=== PATIENT | female | born 1995 | race Caucasian/White ===

== ENCOUNTER 2017-03-11 08:36 | Emergency (ER) | payer MEDICAID, OTHER, SELFPAY ==
[2017-03-11 08:58] LABS: Bilirubin Negative (Negative); Blood, Urine Negative (Negative); Clarity CLEAR (Clear); Glucose, Urine (Dipstick) Negative (Negative); Leukocyte Negative (Negative); Nitrite Negative (Negative); Protein, Urine (Dipstick) Negative (Neg-Trace); Specific Gravity, Urine 1.005 (1.002-1.036); Urobilinogen 0.2 mg/dL (0.2-1.0); pH, Urine 7.5 (5.0-9.0)
[2017-03-11 09:08] LABS: #Eosinphils 0.1 thou/uL (0.0-0.7); #Lymphocytes 1.8 thou/uL (1.20-3.40); #Monocytes 0.5 thou/uL (0.11-0.59); #Neutrophils 4.6 thou/uL (1.40-6.50); %Basophils 0.6 % (0.0-1.0); %Eosinophils 0.8 % (0.0-10.0); %Lymphocytes 26.1 % (21.0-51.0); %Monocytes 6.8 % (0.0-10.0); %Neutrophils 65.7 % (42.0-75.0); Hemoglobin 14.3 g/dL (12.0-16.0); Mean Corpuscular HGB CONC 33.8 g/dL (32.0-36.0); Mean Corpuscular Hemoglobin 31.3 pg (27.0-31.0); Mean Corpuscular Volume 92.5 fl (81.0-99.0); Mean Platelet Volume 6.4 fL (7.4-10.4); Platelet Count 198 thou/uL (130-400); RBC Distribution Width 11.3 % (11.5-14.5); Red Blood Cell (RBC) Count 4.56 mill/uL (4.20-5.40); White Blood Cell (WBC) Count 6.9 thou/uL (4.8-10.8)
[2017-03-11 09:13] LABS: BHCG - Serum POSITIVE (NEGATIVE); Pregs Control Background? CLEAR/WHITE (CLR/WHITE); Pregs Control Bar Appear? YES (CONTROL BAR)
[2017-03-11 09:20] LABS: ALT (SGPT) 11 U/L (8-55); AST (SGOT) 17 U/L (5-34); Albumin 4.2 g/dL (3.5-5.0); Alkaline Phosphatase 51 U/L (40-150); Anion Gap 15 mmol/L (10-20); BUN (Urea Nitrogen) 4 mg/dL (7.0-18.7); Bilirubin, Total 0.3 mg/dL (0.2-1.2); Calc. Creatinine Clearance 0 mL/min (70-130); Calcium 9.5 mg/dL (7.8-10.44); Carbon Dioxide 21 mmol/L (22-29); Chloride 105 mmol/L (98-107); Estimated GFR-MDRD Greater than 90; Globulin 2.4 g/dL (2.4-3.5); Glucose 90 mg/dL (70-105); Potassium 3.8 mmol/L (3.5-5.1); Protein, Total 6.6 g/dL (6.0-8.3); Sodium 137 mmol/L (136-145)
[2017-03-11] MEDS ORDERED: Acetaminophen 500 MG TAB ONE (09:25)
[2017-03-11] MEDS ORDERED: Ondansetron HCl/PF 4 MG/2 ML Vial ONE (09:25)
[2017-03-11] MEDS ORDERED: Ondansetron ODT 8 MG TAB ONE (09:28)
== END 2017-03-11 10:36 | disposition home or self-care (01) ==
LOC: ERS 08:36
DX: O21.9 Vomiting of pregnancy, unspecified (principal); O99.89 Other specified diseases and conditions complicating pregnancy, childbirth and the puerperium; R10.10 Upper abdominal pain, unspecified; O99.341 Other mental disorders complicating pregnancy, first trimester; F41.9 Anxiety disorder, unspecified; F32.9 Major depressive disorder, single episode, unspecified; O99.331 Smoking (tobacco) complicating pregnancy, first trimester; Z3A.08 8 weeks gestation of pregnancy
CPT/HCPCS: 36415; 80053; 81003; 84702; 84703; 85025; 99406; J2405

== ENCOUNTER 2017-04-13 16:28 | Emergency (ER) | payer MEDICAID, SELFPAY ==
[2017-04-13 17:00] LABS: Bilirubin Negative (Negative); Blood, Urine Negative (Negative); Clarity CLEAR (Clear); Glucose, Urine (Dipstick) Negative (Negative); Leukocyte Trace (Negative); Nitrite Negative (Negative); Protein, Urine (Dipstick) Negative (Neg-Trace); Specific Gravity, Urine 1.012 (1.002-1.036); Urobilinogen 0.2 mg/dL (0.2-1.0)
[2017-04-13 17:02] LABS: Bacteria/HPF None Seen HPF (None Seen); Hyaline Casts/LPF 0-3 HYALINE CAST LPF (0-3 Hyaline); Pathc Cast-AUWi Flag 0.13 (0-2.49); RBC/HPF 0-3 HPF (0-3); Squamous Epithelial 0-3 HPF (0-3); WBC/HPF 0-3 HPF (0-3)
[2017-04-13 17:08] LABS: #Monocytes 0.4 thou/uL (0.11-0.59); #Neutrophils 5.8 thou/uL (1.40-6.50); %Basophils 0.3 % (0.0-1.0); %Eosinophils 0.6 % (0.0-10.0); %Lymphocytes 23.9 % (21.0-51.0); %Monocytes 5.2 % (0.0-10.0); %Neutrophils 70.1 % (42.0-75.0); Mean Corpuscular HGB CONC 35.5 g/dL (32.0-36.0); Mean Corpuscular Hemoglobin 31.9 pg (27.0-31.0); Mean Corpuscular Volume 89.9 fl (81.0-99.0); Mean Platelet Volume 6.2 fL (7.4-10.4); Platelet Count 205 thou/uL (130-400); RBC Distribution Width 11.1 % (11.5-14.5); Red Blood Cell (RBC) Count 4.09 mill/uL (4.20-5.40); White Blood Cell (WBC) Count 8.2 thou/uL (4.8-10.8)
[2017-04-13 17:14] LABS: Amphetamine Not Detected (NotDetected); Barbiturates Screen Not Detected (NotDetected); Benzodiazepine Screen Not Detected (NotDetected); Cocaine Metabolite Screen Not Detected (NotDetected); Medtox Control Line Valid? VALID (VALID); Medtox Reader # READER 4; Methadone Not Detected (NotDetected); Methamphetamine Not Detected (NotDetected); Opiate Screen Not Detected (NotDetected); Oxycodone Screen Not Detected (NotDetected); Phencyclidine (PCP) Not Detected (NotDetected); THC/Cannabinoid Screen Detected (NotDetected); Tricyclic Screen Not Detected (NotDetected)
[2017-04-13 17:30] LABS: ALT (SGPT) 10 U/L (8-55); AST (SGOT) 15 U/L (5-34); Alcohol Less than 10 mg/dL (Less than 10); Alkaline Phosphatase 48 U/L (40-150); Anion Gap 10 mmol/L (10-20); BUN (Urea Nitrogen) 7 mg/dL (7.0-18.7); Bilirubin, Total 0.5 mg/dL (0.2-1.2); CK (CPK) 32 U/L (29-168); Calc. Creatinine Clearance 0 mL/min (70-130); Calcium 9.3 mg/dL (7.8-10.44); Carbon Dioxide 24 mmol/L (22-29); Chloride 104 mmol/L (98-107); Estimated GFR-MDRD Greater than 90; Globulin 2.5 g/dL (2.4-3.5); Glucose 109 mg/dL (70-105); Potassium 3.2 mmol/L (3.5-5.1); Protein, Total 6.5 g/dL (6.0-8.3); Sodium 135 mmol/L (136-145)
[2017-04-13] MEDS ORDERED: Ondansetron ODT 4 MG TAB ONE (19:57)
== END 2017-04-13 20:08 | disposition home or self-care (01) ==
LOC: ERS 16:28
DX: O99.341 Other mental disorders complicating pregnancy, first trimester (principal); F32.9 Major depressive disorder, single episode, unspecified; F41.9 Anxiety disorder, unspecified; O99.331 Smoking (tobacco) complicating pregnancy, first trimester; F17.210 Nicotine dependence, cigarettes, uncomplicated; Z79.899 Other long term (current) drug therapy; Z3A.13 13 weeks gestation of pregnancy
CPT/HCPCS: 36415; 80053; 80306; 80307; 81003; 81015; 82550; 84443; 84702; 85025; 99284; Q0162

== ENCOUNTER 2017-04-15 13:31 | Emergency (ER) | payer MEDICAID, SELFPAY ==
[2017-04-15 14:07] LABS: #Monocytes 0.4 thou/uL (0.11-0.59); #Neutrophils 5.9 thou/uL (1.40-6.50); %Basophils 0.3 % (0.0-1.0); %Eosinophils 0.4 % (0.0-10.0); %Neutrophils 70.3 % (42.0-75.0); Hemoglobin 13.9 g/dL (12.0-16.0); Mean Corpuscular HGB CONC 34.5 g/dL (32.0-36.0); Mean Corpuscular Volume 89.9 fl (81.0-99.0); Mean Platelet Volume 6.2 fL (7.4-10.4); Platelet Count 225 thou/uL (130-400); RBC Distribution Width 11.1 % (11.5-14.5); Red Blood Cell (RBC) Count 4.49 mill/uL (4.20-5.40); White Blood Cell (WBC) Count 8.4 thou/uL (4.8-10.8)
[2017-04-15 14:10] LABS: Bilirubin Negative (Negative); Blood, Urine Small (Negative); Clarity CLEAR (Clear); Glucose, Urine (Dipstick) Negative (Negative); Leukocyte Negative (Negative); Nitrite Negative (Negative); Protein, Urine (Dipstick) Negative (Neg-Trace); Specific Gravity, Urine 1.008 (1.002-1.036); Urobilinogen 0.2 mg/dL (0.2-1.0); pH, Urine 7.5 (5.0-9.0)
[2017-04-15 14:23] LABS: Bacteria/HPF None Seen HPF (None Seen); Hyaline Casts/LPF NONE SEEN LPF (0-3 Hyaline); RBC/HPF 0-3 HPF (0-3); Squamous Epithelial 0-3 HPF (0-3); WBC/HPF None Seen HPF (0-3)
[2017-04-15 14:25] LABS: ALT (SGPT) 11 U/L (8-55); AST (SGOT) 19 U/L (5-34); Albumin 4.3 g/dL (3.5-5.0); Alkaline Phosphatase 50 U/L (40-150); Anion Gap 13 mmol/L (10-20); BUN (Urea Nitrogen) 7 mg/dL (7.0-18.7); Bilirubin, Total 0.7 mg/dL (0.2-1.2); Calc. Creatinine Clearance 0 mL/min (70-130); Calcium 10.1 mg/dL (7.8-10.44); Carbon Dioxide 22 mmol/L (22-29); Chloride 104 mmol/L (98-107); Estimated GFR-MDRD Greater than 90; Globulin 2.9 g/dL (2.4-3.5); Glucose 68 mg/dL (70-105); Potassium 3.8 mmol/L (3.5-5.1); Protein, Total 7.2 g/dL (6.0-8.3); Sodium 135 mmol/L (136-145)
--- NOTE | 2017-04-15 16:04 | ULT ---
RENAL SONOGRAM: Date: 04-15-17 History: Right flank pain. History of renal cyst. Patient is approximately 13 weeks . Comparison: 07-03-13 FINDINGS: The right kidney measures 11.9 x 3.9 cm with the left kidney measuring 12.4 x 4.8 cm. There is a sma ll hypoechoic structure seen in the inferior pole of the right kidney measuring 1.5 cm with an echoge jannette area seen posteriorly within the structure. Similar finding was seen on the prior exam of 2013. T his may represent cyst with milk of calcium layering within this cyst. There is additional smaller hy poechoic structure obstructing the portion of the inferior pole right kidney measuring 1.1 cm with si milar echogenic area seen posteriorly. This could also represent a cyst with mild of calcium layering posteriorly. There is a small anechoic structure seen at the junction of midportion of superior pole right kidney measuring 1.3 cm with internal echogenic material. This represented a larger left renal cyst on prior study in 2013 and findings may represent interval decrease in size of cyst with echogenic material r epresenting a small amount of debris or hemorrhage. There is no hydronephrosis. No new renal lesion is seen. Urinary bladder demonstrates a normal sonographic appearance. There is partial visualization of an in trauterine gestation incompletely evaluated on this exam. IMPRESSION: 1. No evidence of hydronephrosis bilaterally. 2. Mildly complex cystic lesions within the inferior pole right kidney, also seen on prior exam of . Findings may be related to milk of calcium laying within cysts or possibly calcifications in the wall. 2. Interval decrease in size of superior pole right renal cyst with echogenic material now seen in th e cyst which could be related to debris or small amount of hemorrhage. 3. Patient demonstrated cystic lesions within the superior pole left kidney and inferior pole right k idney on prior CT examination on 07-08-12. POS: [facility]
== END 2017-04-15 16:54 | disposition home or self-care (01) ==
LOC: ERS 13:31
DX: O26.831 Pregnancy related renal disease, first trimester (principal); N28.1 Cyst of kidney, acquired; O99.341 Other mental disorders complicating pregnancy, first trimester; F41.9 Anxiety disorder, unspecified; F32.9 Major depressive disorder, single episode, unspecified; O99.331 Smoking (tobacco) complicating pregnancy, first trimester; Z3A.00 Weeks of gestation of pregnancy not specified
CPT/HCPCS: 36415; 76770; 80053; 81003; 81015; 83690; 85025; 96360; 99406

== ENCOUNTER 2017-05-29 08:10 | Outpatient (CLI) | payer OTHER ==
--- NOTE | 2017-05-29 09:00 | ULT ---
RIGHT UPPER QUADRANT ULTRASOUND: History: 22-year-old with abdominal pain. Technique: Multiple longitudinal and transverse images of the right upper quadrant of the abdomen obt ained using a multihertz curvilinear transducer. Real-time, color flow and spectral waveform doppler analysis was used to evaluate the right upper quadrant. FINDINGS: The liver is unremarkable with no evidence of hepatic parenchymal masses or lesions. The gallbladder is unremarkable. No evidence of gallstones seen. Common bile duct is of normal size measuring 2.8 mm. The gallbladder wall is not thickened. The right kidney is unremarkable measuring 11.3 cm from pole to pole. There is a small cortical cyst seen in the upper pole of the right kidney. IMPRESSION: Small right renal cyst, otherwise unremarkable right upper quadrant ultrasound. POS: [facility]
--- NOTE | 2017-05-29 09:34 | ULT ---
BILATERAL RENAL ULTRASOUND: History: Renal cysts. Technique: Multiple longitudinal and transverse images of the kidneys and bladder were obtained using a multihertz curvilinear transducer. Real-time, color flow images obtained. Comparison: 04-15-17 FINDINGS: Images demonstrate both kidneys to be of normal contour, axis, and size. The right kidney measures 11 .2 while the left kidney measures 11.5 cm from pole to pole. Some cortical cysts seen in the upper an d mid pole of the left kidney. This is not significantly changed since the previous comparison ultras ound from 04-15-17. Continue with follow up sonography after the patient has had delivery. IMPRESSION: Left renal cysts. No evidence of hydronephrosis or masses. POS: [facility]
== END 2017-05-29 08:11 | disposition home or self-care (01) ==
LOC: ULT 08:10
PROVIDERS: ATTEND Family Medicine
DX: O99.89 Other specified diseases and conditions complicating pregnancy, childbirth and the puerperium (principal); R10.9 Unspecified abdominal pain; N28.1 Cyst of kidney, acquired
CPT/HCPCS: 76705; 76770

== ENCOUNTER 2017-06-24 10:29 | Day surgery (SDC) | payer OTHER ==
[2017-06-24 10:48] LABS: #Eosinphils 0.1 thou/uL (0.0-0.7); #Lymphocytes 1.9 thou/uL (1.20-3.40); #Monocytes 0.5 thou/uL (0.11-0.59); #Neutrophils 6.7 thou/uL (1.40-6.50); %Basophils 0.2 % (0.0-1.0); %Eosinophils 0.7 % (0.0-10.0); %Lymphocytes 20.8 % (21.0-51.0); %Monocytes 5.4 % (0.0-10.0); %Neutrophils 72.9 % (42.0-75.0); Hemoglobin 12.7 g/dL (12.0-16.0); Mean Corpuscular HGB CONC 35.3 g/dL (32.0-36.0); Mean Corpuscular Hemoglobin 32.1 pg (27.0-31.0); Mean Platelet Volume 5.8 fL (7.4-10.4); Platelet Count 230 thou/uL (130-400); Red Blood Cell (RBC) Count 3.95 mill/uL (4.20-5.40); White Blood Cell (WBC) Count 9.1 thou/uL (4.8-10.8)
[2017-06-24 11:10] LABS: ALT (SGPT) 24 U/L (8-55); AST (SGOT) 27 U/L (5-34); Albumin 3.5 g/dL (3.5-5.0); Alkaline Phosphatase 62 U/L (40-150); Anion Gap 12 mmol/L (10-20); BUN (Urea Nitrogen) 5 mg/dL (7.0-18.7); Bilirubin, Total 0.2 mg/dL (0.2-1.2); CK (CPK) 25 U/L (29-168); Calc. Creatinine Clearance 0 mL/min (70-130); Calcium 9.6 mg/dL (7.8-10.44); Carbon Dioxide 22 mmol/L (22-29); Chloride 104 mmol/L (98-107); Estimated GFR-MDRD Greater than 90; Globulin 2.7 g/dL (2.4-3.5); Glucose 102 mg/dL (70-105); Lipase 21 U/L (8-78); Potassium 3.3 mmol/L (3.5-5.1); Protein, Total 6.2 g/dL (6.0-8.3); Sodium 135 mmol/L (136-145)
[2017-06-24 11:15] LABS: CKMB 0.4 ng/mL (0-6.6); Troponin I Less than 0.010 ng/mL (< 0.028)
[2017-06-24 11:33] VITALS: BP 139/107; TEMP 99.2; BMI 19.3
[2017-06-24] MEDS ORDERED: Lidocaine 2% Viscous Solution 10 ML, Aluminum & Magnesium Hydroxide 30 ML SSW SCH (12:15)
[2017-06-24] MEDS ORDERED: Dextrose 5%-Lactated Ringers 1,000 ML IV SCH (12:15)
[2017-06-24 12:28] LABS: Bilirubin Negative (Negative); Blood, Urine Trace (Negative); Clarity CLEAR (Clear); Glucose, Urine (Dipstick) Negative (Negative); Leukocyte Trace (Negative); Nitrite Negative (Negative); Protein, Urine (Dipstick) Negative (Neg-Trace); Specific Gravity, Urine 1.011 (1.002-1.036); Urobilinogen 0.2 mg/dL (0.2-1.0)
[2017-06-24 12:32] LABS: Bacteria/HPF None Seen HPF (None Seen); Hyaline Casts/LPF 4-6 HYALINE CAST LPF (0-3 Hyaline); Pathc Cast-AUWi Flag 1.01 (0-2.49); Squamous Epithelial 0-3 HPF (0-3)
[2017-06-24 12:45] LABS: Transitional Epithelial 0-3 HPF (0-3)
--- NOTE | 2017-06-24 14:06 | PRG ---
DATE OF SERVICE: 06/24/2017 TIME OF SERVICE: 1345. PRESENTING COMPLAINT: Mid epigastric pain at 22-23 weeks gestation. HISTORY OF PRESENT ILLNESS: The patient is a 22-year-old 3, para 0 with an EDC of 10/17/2017 who presents with 1 day history of midepigastric pain radiating over to the left upper quadrant. Sh e has had mild nausea, no vomiting, and decreased p.o. desire. She reports movement. She delfino es rupture of membranes, bleeding, dysuria or frequency. 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 No history of STDs, negative Pap, negative [employer] DIRECT[employer] FINANCE-3, blood type not in OB h istory. PAST MEDICAL HISTORY: Significant for long history of GI issues with negative EGDs and hospitalizati ons. PAST SURGICAL HISTORY: EGD and tonsils. ALLERGIES: PENICILLIN - rash with AMOXICILLIN in infancy for ear infection. MEDICATIONS: vitamins. SOCIAL HISTORY: Denies tobacco, alcohol, or drug use. FAMILY HISTORY/REVIEW OF SYSTEMS: Noncontributory. PHYSICAL EXAMINATION: GENERAL: White female in no acute distress. VITAL SIGNS: Blood pressure 128/72, after initial 130/80, afebrile with a temperature of 98.2, respi rations 18, pulse 85. HEENT: Within normal limits. LUNGS: Clear to auscultation bilaterally. HEART: Regular rate and rhythm. ABDOMEN: Fundal height of 23 cm. FHTs 140s to 150s. She has discomfort in the midepigastrium just below her xiphoid and to left upper quadrant. No right upper quadrant tenderness. No mass noted. N o CVA tenderness. EXTREMITIES: Without clubbing, cyanosis or edema. PELVIC: Exam deferred. LABORATORY STUDIES: White count of 9.1, hematocrit of 36, platelet count within normal limits. Comp met revealed mild hyponatremia and a slight hypokalemia consistent with her n.p.o. status. Otherwis e, is unremarkable with normal liver enzymes and amylase. Cath UA revealed trace white blood cells w ith trace leukocyte esterase, no RBCs, no bacteria seen. Toxicology was not done and it was positive for cannabinoids in March. IMPRESSION: GE reflux in 2nd trimester of . PLAN: The patient was administered 1 liter of LR D5 bolus as well as a white grasshopper GI cocktail . This relieved her symptoms completely. She was discharged home and instructed to take Zantac 75 p .o. b.i.d. and keep scheduled follow up with Dr. Goff. Represented to the ER for worsening symptoms.
== END 2017-06-24 14:05 | disposition home or self-care (01) ==
LOC: L&D/OP 10:29 → ERS 10:29 → EDSTATUS 10:52 → L&D/OP 14:05
PROVIDERS: ATTEND Family Medicine
DX: O99.612 Diseases of the digestive system complicating pregnancy, second trimester (principal); K21.9 Gastro-esophageal reflux disease without esophagitis; Z3A.23 23 weeks gestation of pregnancy; Z79.899 Other long term (current) drug therapy; Z88.0 Allergy status to penicillin; Z91.040 Latex allergy status
CPT/HCPCS: 36415; 51701; 80053; 81001; 82553; 83690; 84484; 85025; 87086; 93005; 94760; 96360; 96361; 99283; A4353

== ENCOUNTER 2017-06-28 12:50 | Emergency (ER) | payer OTHER | END 2017-06-28 13:54 | LOC: ERS 12:50 | DX: Z53.21 Procedure and treatment not carried out due to patient leaving prior to being seen by health care provider (principal) ==

== ENCOUNTER 2017-07-30 14:14 | Day surgery (SDC) | payer OTHER ==
[2017-07-30 14:46] VITALS: BMI 21.6
[2017-07-30 14:47] VITALS: BP 139/73; TEMP 99.1
[2017-07-30 15:54] LABS: Bilirubin Negative (Negative); Blood, Urine Negative (Negative); Clarity CLEAR (Clear); Glucose, Urine (Dipstick) Negative (Negative); Leukocyte Negative (Negative); Nitrite Negative (Negative); Protein, Urine (Dipstick) Negative (Neg-Trace); Specific Gravity, Urine 1.005 (1.002-1.036); Urobilinogen 0.2 mg/dL (0.2-1.0); pH, Urine 7.5 (5.0-9.0)
--- NOTE | 2017-07-31 03:40 | SS ---
LABOR AND DELIVERY TRIAGE NOTE DATE OF EVALUATION: 07/30/2017 REGULAR PHYSICIAN: Wilner Goff M.D. EVALUATING PHYSICIAN: Jose Hunter M.D. CHIEF COMPLAINT: Back pain and cramping. HISTORY OF PRESENT ILLNESS: Ms. Modi is a 22-year-old, white, G3, P0, AB2 with an estimated date of confinement of 10/17/2017, who presents complaining of cramping and lower back pain since earlier today. She denies ruptured membranes or vaginal bleeding. Her care has been with Dr. Goff without complications. PAST MEDICAL HISTORY: None. PAST SURGICAL HISTORY: Includes a tonsillectomy and sinus surgery. CURRENT MEDICATIONS: vitamins and occasional Unisom p.r.n. sleeplessness. ALLERGIES: No known allergies. SOCIAL HISTORY: Denies tobacco use or alcohol use. FAMILY HISTORY: Denies pelvic malignancy. REVIEW OF SYSTEMS: She denies nausea, vomiting, fever, chills, vaginal bleeding or ruptured membrane s. PHYSICAL EXAMINATION: VITAL SIGNS: Stable. She is afebrile. ABDOMEN: Soft, nontender and gravid. PELVIC: Pelvic examination is deferred. heart tones are stable with no decelerations. Initia lly a mild irritability is seen. The patient is orally hydrated and quickly quieted down. LABORATORY DATA: Urinalysis shows a specific gravity of 1.005 with negative leukocytes, negative nit rites, negative urine protein, negative glucose, negative ketones, negative bilirubin and negative bl ood. ASSESSMENT: 1. A 28 and 5/7 week intrauterine . 2. No evidence of labor. PLAN: The patient will be discharged to home. She was given complete labor precautions and was told to keep herself hydrated at home and follow up with Dr. Goff for her next scheduled appointm ent.
== END 2017-07-30 16:38 | disposition home or self-care (01) ==
LOC: L&D/OP 14:14
PROVIDERS: ATTEND Family Medicine
DX: O99.89 Other specified diseases and conditions complicating pregnancy, childbirth and the puerperium (principal); R10.9 Unspecified abdominal pain; M54.5 Low back pain; Z3A.28 28 weeks gestation of pregnancy
CPT/HCPCS: 81003; 99282

== ENCOUNTER 2017-10-01 17:00 | Observation (INO) | payer OTHER ==
[2017-10-01 18:27] VITALS: BMI 22.8
[2017-10-01] MEDS ORDERED: Ondansetron HCl/PF 4 MG/2 ML Vial IVP PRN (22:16)
[2017-10-01] MEDS ORDERED: Zolpidem Tartrate 5 MG TAB PO PRN (22:16)
[2017-10-01] MEDS ORDERED: Acetaminophen 500 MG TAB PO PRN (22:16)
[2017-10-01] MEDS ORDERED: Calcium Carbonate 500 MG ChewTAB PO PRN (22:17)
--- NOTE | 2017-10-02 01:20 | HP ---
DATE OF ENCOUNTER: 10/01/2017 PRIMARY GERMAN INSTRUCTOR: Dr. Wilner Goff. CHIEF COMPLAINT: Leakage of fluid and contractions. HISTORY OF PRESENT ILLNESS: Patient is a 22-year-old G1, P0 female with an intrauterine at 37 weeks and 5 days, who is presenting to labor and delivery this afternoon with complaints of cramp iness and contractions and leaking fluid since her doctor's visit earlier today. Patient had request ed that her membranes to be swept. She reports that her leaking is evidence by moisture and her pain is that she has had replaced several times. She does report that her crampiness feels more like Bra xton Alanis and are not severe regular at this time. Patient denies any recent illness, fever, fall, headache, chest pain, shortness of breath. She has had some nausea, but no vomiting. Denies diarrhe a or constipation. Denies any new rashes. Denies vaginal bleeding, denies any urinary urgency or fr equency. Denies right upper quadrant tenderness. PAST MEDICAL HISTORY: History of depression, anxiety, history of cutting behavior, heartburn. PAST SURGICAL HISTORY: EGD and ESS with tonsillectomy. SOCIAL HISTORY: Denies drug, alcohol, or tobacco use. ALLERGIES: PENICILLIN and LATEX. Blood type A positive. She is rubella immune. GC and chlamydia are negative. Syphilis is nonreacti ve. Hepatitis B surface antigen nonreactive. HIV nonreactive in the third trimester. RPR nonreacti ve in the third trimester. A drug screen positive for marijuana. REVIEW OF SYSTEMS: Per HPI. PHYSICAL EXAMINATION: VITAL SIGNS: Initial blood pressure 143/93, heart rate of 98, respiratory rate of 20, temperature 98 .8. Over the subsequent 4 hours, patient has had primarily normal range pressures with occasional mi ld with her most elevated blood pressure at 147/92. GENERAL: She appears to be in no acute distress. She is alert and oriented, cooperative, and pleasa nt to interact with. HEAD: Normocephalic, atraumatic. LUNGS: Clear to auscultation bilaterally. HEART: Regular rate and rhythm. ABDOMEN: Soft. There is no right upper quadrant tenderness to palpation and no other tenderness to palpation. Abdomen is gravid. No suprapubic tenderness. DTRs are 2+. Bulb was without masses, les ions, or erythema. Vagina is moist. No fluids visible on exam with Valsalva and Trendelenburg for a n hour. A digital cervical exam is 1.5, 60, ballotable. heart tracing performed for abdominal pain and leakage of fluid. Baseline is noted to be in the 140s with moderate long-term variability, positive accelerations 15 x 15 accelerations, no decelerations. She has irritability on the tocometer with l arger contractions about every 7-10 minutes. Urine dip for protein was negative. CMP is pending. ASSESSMENT AND PLAN: Patient is a 22-year-old female with a history of anxiety and depression, prese nting with an intrauterine at 37 weeks and 5 days for leakage of fluid. [facility] this time that she has any rupture of membranes or active labor at this time; however, patient has had occasional spikes into the mild range over the 4 hours of evaluating her blood pressures. I have spoken to Dr. Goff, her primary OB, who knows the patient much better than I do and reports that patient's blood pressures were very labile due to emotions and stress. Patient does not have a favo rable cervix for induction at this time and I am reluctant to call her PIH, as she has not had elevat ed pressures outside the 6-hour window. Plan at this time is to bring the patient in for observation overnight and see how her pressures trend and will give report to Dr. Goff in the morning. I discus sed this plan with the patient and discussed the risks of induction of labor at 37 weeks with an unfa vorable cervix and the benefit of an induction at this time if she did indeed have a relate d hypertension. Fetus has a reactive NST and category [address] Goff will be assuming care i n the morning should she stay.
[2017-10-02 04:35] VITALS: TEMP 98.3
[2017-10-02 05:31] LABS: Hemoglobin 9.7 g/dL (12.0-16.0); Mean Corpuscular HGB CONC 34.6 g/dL (32.0-36.0); Mean Corpuscular Volume 83.8 fL (78.0-98.0); Mean Platelet Volume 6.1 fL (7.4-10.4); Platelet Count 232 thou/uL (130-400); RBC Distribution Width 11.7 % (11.5-14.5); Red Blood Cell (RBC) Count 3.33 mill/uL (4.20-5.40); White Blood Cell (WBC) Count 9.1 thou/uL (4.8-10.8)
[2017-10-02 05:57] LABS: ALT (SGPT) 9 U/L (8-55); AST (SGOT) 15 U/L (5-34); Alkaline Phosphatase 178 U/L (40-150); Anion Gap 11 mmol/L (10-20); BUN (Urea Nitrogen) 8 mg/dL (7.0-18.7); Bilirubin, Total 0.3 mg/dL (0.2-1.2); Calc. Creatinine Clearance 128 mL/min (70-130); Carbon Dioxide 23 mmol/L (22-29); Chloride 105 mmol/L (98-107); Estimated GFR-MDRD Greater than 90; Globulin 2.6 g/dL (2.4-3.5); Glucose 92 mg/dL (70-105); Potassium 3.7 mmol/L (3.5-5.1); Protein, Total 5.6 g/dL (6.0-8.3); Sodium 135 mmol/L (136-145)
[2017-10-02 06:04] VITALS: BP 126/67
[2017-10-02 06:14] LABS: HBSAg Index 0.17 S/CO (0-0.99); Hep B Surf Ag Non-Reactive S/CO (NonReactive); Syphilis Antibody Nonreactive (Nonreactive); Syphilis Antibody Index 0.03 S/CO (<1.00 Non-Reactive)
--- NOTE | 2017-10-02 08:40 | DIS ---
HOSPITAL COURSE: The patient is a 22-year-old G1, P0 female with an intrauterine at 37 wee ks and 5 days who was admitted for observation due to mild elevations in her blood pressure. Her pH labs have all been within normal limits supporting no evidence of preeclampsia. Her mild range blood pressures resolved to strictly normal range within 6 hours. During that 6 hour period her mild rang e pressures trended less and less frequent with a blood pressure max at 147/92. The patient this kyleigh duque reports that she is feeling well. Denies headache. Reports her cramping has nearly resolved. OBJECTIVE: VITAL SIGNS: Blood pressure is 131/77 with a heart rate of 74. GENERAL: The patient appears to be in no acute distress. She was awoken from her sleep. ABDOMEN: Soft, nontender. EXTREMITIES: Without edema and are nontender. The patient is being discharged to home. She has instructions to follow up with Dr. Goff tomorrow. I have communicated the same findings to Dr. Goff and will be expecting her tomorrow. I have also a sked the patient to take her blood pressure cuff to the office to compare blood pressure readings. The patient will be given preeclamptic precautions. If blood pressures remain normal, she does have an induction date in place decided upon by Dr. Goff and herself. Should she persist with her elevate d blood pressures, or if blood pressures return the patient and Dr. Goff can make further management decisions.
== END 2017-10-02 06:50 | disposition home health service (06) ==
LOC: L&D/OP 17:00 → L&D 10-02 00:42
PROVIDERS: ADMIT Obstetrics & Gynecology; ATTEND Obstetrics & Gynecology
DX: O47.1 False labor at or after 37 completed weeks of gestation (principal); Z88.0 Allergy status to penicillin; Z91.040 Latex allergy status; Z3A.37 37 weeks gestation of pregnancy
CPT/HCPCS: 36415; 80053; 81003; 85027; 86780; 86850; 86900; 86901; 87340; 99285; G0378

== ENCOUNTER 2017-10-03 17:37 | Day surgery (SDC) | payer OTHER ==
[2017-10-03 18:20] VITALS: BMI 22.6
[2017-10-03 18:56] LABS: #Basophils 0.1 thou/uL (0.0-0.2); #Lymphocytes 2.2 thou/uL (1.20-3.40); #Monocytes 0.5 thou/uL (0.11-0.59); #Neutrophils 6.5 thou/uL (1.40-6.50); %Basophils 0.7 % (0.0-1.0); %Eosinophils 0.4 % (0.0-10.0); %Lymphocytes 23.9 % (21.0-51.0); %Monocytes 5.3 % (0.0-10.0); %Neutrophils 69.6 % (42.0-75.0); Hemoglobin 10.7 g/dL (12.0-16.0); Mean Corpuscular HGB CONC 35.2 g/dL (32.0-36.0); Mean Corpuscular Volume 82.5 fL (78.0-98.0); Mean Platelet Volume 6.1 fL (7.4-10.4); Platelet Count 200 thou/uL (130-400); RBC Distribution Width 11.7 % (11.5-14.5); Red Blood Cell (RBC) Count 3.68 mill/uL (4.20-5.40); White Blood Cell (WBC) Count 9.4 thou/uL (4.8-10.8)
[2017-10-03 19:15] LABS: Bilirubin Negative (Negative); Blood, Urine Negative (Negative); Clarity CLEAR (Clear); Glucose, Urine (Dipstick) 100 mg/dL (Negative); Leukocyte Negative (Negative); Nitrite Negative (Negative); Protein, Urine (Dipstick) Negative (Neg-Trace); Urobilinogen 0.2 mg/dL (0.2-1.0); pH, Urine 6.5 (5.0-9.0)
[2017-10-03 19:18] LABS: Specific Gravity, Urine 1.003 (1.002-1.036)
[2017-10-03 19:20] LABS: ALT (SGPT) 8 U/L (8-55); AST (SGOT) 16 U/L (5-34); Albumin 3.2 g/dL (3.5-5.0); Alkaline Phosphatase 203 U/L (40-150); Anion Gap 13 mmol/L (10-20); BUN (Urea Nitrogen) 5 mg/dL (7.0-18.7); Bilirubin, Total 0.4 mg/dL (0.2-1.2); Calc. Creatinine Clearance 111 mL/min (70-130); Calcium 8.8 mg/dL (7.8-10.44); Carbon Dioxide 20 mmol/L (22-29); Chloride 107 mmol/L (98-107); Estimated GFR-MDRD Greater than 90; Glucose 167 mg/dL (70-105); Potassium 3.5 mmol/L (3.5-5.1); Protein, Total 6.2 g/dL (6.0-8.3); Sodium 136 mmol/L (136-145)
--- NOTE | 2017-10-03 21:34 | PDOC.EVN ---
Event Note - Event Note Event Note: I have seen the patient and reviewed the lab results. BPs normal to mild range and labs wnl. No protein on UA. D/c home with precautions. Advised to follow up within 1 week with PCP.
--- NOTE | 2017-10-04 02:10 | SS ---
DATE OF EVALUATION: 10/03/2017 LABOR AND DELIVERY TRIAGE NOTE REGULAR PHYSICIAN: Wilner Goff M.D. EVALUATING PHYSICIAN: Jose Hunter M.D. CHIEF COMPLAINT: Elevated blood pressures in clinic. HISTORY OF PRESENT ILLNESS: Ms. Modi is a 22-year-old, white, G3, P0, AB2 with an estimated date of confinement of 10/17/2017, who presents after having had elevated blood pressure in clinic today. She reports her blood pressure is 160/95 at that time. She was evaluated in clinic, but Dr. Goff w as not present at that time. She denies headache, visual changes, or right upper quadrant pain. Of note, it is the fact that she was evaluated within the last 2 weeks for similar complaints. PAST OBSTETRICAL HISTORY: Includes two early miscarriages neither requiring D&C. PAST MEDICAL HISTORY: Depression. PAST SURGICAL HISTORY: Tonsillectomy and adenoidectomy as well as nasal surgery. CURRENT MEDICATIONS: vitamins and Zoloft. ALLERGIES: PENICILLIN and LATEX. SOCIAL HISTORY: She denies tobacco or alcohol use. FAMILY HISTORY: Unremarkable. REVIEW OF SYSTEMS: She denies headache, blurry vision, right upper quadrant pain, or contractions. PHYSICAL EXAMINATION: VITAL SIGNS: Blood pressures initially here are in the 130s/80s range. She is afebrile. ABDOMEN: Soft and nontender. PELVIC: At this time is deferred. heart rate tracing is stable. No significant uterine contr actions are seen. ASSESSMENT: 1. A 38-week intrauterine . 2. Elevated blood pressures in clinic rule out -induced hypertension. PLAN: CBC, chemistry, and urinalysis for protein have been ordered and they are pending.
== END 2017-10-03 21:10 | disposition home or self-care (01) ==
LOC: L&D/OP 17:37
PROVIDERS: ATTEND Family Medicine
DX: O99.89 Other specified diseases and conditions complicating pregnancy, childbirth and the puerperium (principal); R03.0 Elevated blood-pressure reading, without diagnosis of hypertension; Z88.0 Allergy status to penicillin; Z91.040 Latex allergy status; Z3A.38 38 weeks gestation of pregnancy
CPT/HCPCS: 36415; 80053; 81003; 85025

== ENCOUNTER 2017-10-10 21:00 | Inpatient (IN) | payer OTHER ==
[2017-10-11 02:32] VITALS: BMI 23.0
[2017-10-11] MEDS ORDERED: NS w/ Oxytocin 10 units 500 ML IV SCH (02:32)
[2017-10-11] MEDS ORDERED: Lidocaine 1% (PF) 30 ML VIAL SC PRN ×2 (02:32→09:45)
[2017-10-11] MEDS ORDERED: Promethazine HCl 25 MG/ML VIAL IM PRN ×2 (02:32→09:14)
[2017-10-11] MEDS ORDERED: Ibuprofen 800 MG TAB PO PRN (02:32)
[2017-10-11] MEDS ORDERED: NS / Oxytocin 40 units/1000ml 1,000 ML IV PRN (02:32)
[2017-10-11] MEDS ORDERED: HYDROcodone/Acetaminophen 5/325 mg Tablet PO PRN (02:32)
[2017-10-11] MEDS ORDERED: Methylergonovine 0.2 MG/ML VIAL IM PRN (02:32)
[2017-10-11] MEDS ORDERED: Misoprostol 200 MCG TAB PR PRN (02:32)
[2017-10-11] MEDS ORDERED: Carboprost 250 MCG/ML AMP IM PRN (02:32)
[2017-10-11] MEDS ORDERED: Vancomycin HCl 1 GM in Premix Bag 1 BAG IVPB SCH (03:00)
[2017-10-11] MEDS: Lactated Ringer's 1,000 ML IV SCH ×2 (03:09→08:59)
[2017-10-11 03:13] LABS: Hemoglobin 10.3 g/dL (12.0-16.0); Mean Corpuscular HGB CONC 34.3 g/dL (32.0-36.0); Mean Corpuscular Hemoglobin 27.8 pg (27.0-31.0); Mean Platelet Volume 6.9 fL (7.4-10.4); Platelet Count 212 thou/uL (130-400); RBC Distribution Width 12.1 % (11.5-14.5); Red Blood Cell (RBC) Count 3.71 mill/uL (4.20-5.40); White Blood Cell (WBC) Count 10.2 thou/uL (4.8-10.8)
[2017-10-11] MEDS: Misoprostol 100 MCG TAB VAG SCH ×5 (03:17→16:28)
[2017-10-11 03:22] LABS: Bilirubin Negative (Negative); Blood, Urine Negative (Negative); Clarity CLEAR (Clear); Glucose, Urine (Dipstick) Negative (Negative); Leukocyte Negative (Negative); Nitrite Negative (Negative); Protein, Urine (Dipstick) Negative (Neg-Trace); Specific Gravity, Urine 1.007 (1.002-1.036); Urobilinogen 0.2 mg/dL (0.2-1.0); pH, Urine 7.5 (5.0-9.0)
[2017-10-11 03:24] LABS: Bacteria/HPF None Seen HPF (None Seen); Hyaline Casts/LPF 0-3 HYALINE CAST LPF (0-3 Hyaline); RBC/HPF 0-3 HPF (0-3); Squamous Epithelial 0-3 HPF (0-3); WBC/HPF 0-3 HPF (0-3)
[2017-10-11 03:28] LABS: ALT (SGPT) 15 U/L (8-55); AST (SGOT) 31 U/L (5-34); Albumin 3.4 g/dL (3.5-5.0); Alkaline Phosphatase 219 U/L (40-150); Anion Gap 17 mmol/L (10-20); BUN (Urea Nitrogen) 8 mg/dL (7.0-18.7); Bilirubin, Total 0.2 mg/dL (0.2-1.2); Calc. Creatinine Clearance 136 mL/min (70-130); Calcium 8.6 mg/dL (7.8-10.44); Carbon Dioxide 19 mmol/L (22-29); Chloride 104 mmol/L (98-107); Estimated GFR-MDRD Greater than 90; Globulin 2.9 g/dL (2.4-3.5); Glucose 79 mg/dL (70-105); Potassium 4.2 mmol/L (3.5-5.1); Protein, Total 6.3 g/dL (6.0-8.3); Sodium 136 mmol/L (136-145)
[2017-10-11 03:46] LABS: Hep B Surf Ag Non-Reactive S/CO (NonReactive)
[2017-10-11 04:43] LABS: Syphilis Antibody Nonreactive (Nonreactive); Syphilis Antibody Index 0.04 S/CO (<1.00 Non-Reactive)
[2017-10-11] MEDS ORDERED: diphenhydrAMINE 25 MG CAP PO SCH (06:00)
[2017-10-11] MEDS ORDERED: Bupivacaine 0.5% 20 ML, fentaNYL Citrate/PF 400 MCG in Sodium Chloride 0.9% 72 ML EPIDURAL SCH (08:00)
[2017-10-11] MEDS ORDERED: DISCONTINUE ALL PREVIOUS NARCOTICS FS SCH (08:00)
[2017-10-11] MEDS: Ondansetron HCl/PF 4 MG/2 ML Vial IVP PRN (09:08)
[2017-10-11] MEDS ORDERED: ePHEDrine/0.9% NaCl/PF SYRINGE 50 mg/10 ml SLOW IVP PRN (09:14)
[2017-10-11] MEDS ORDERED: Lactated Ringer's 500 ML IV PRN (09:14)
[2017-10-11] MEDS ORDERED: Acetaminophen 325 MG TAB PO PRN (09:14)
[2017-10-11] MEDS ORDERED: Ondansetron HCl/PF 4 MG/2 ML Vial IVP PRN (09:14)
[2017-10-11] MEDS ORDERED: diphenhydrAMINE 50 MG/ML VIAL IVP PRN (09:14)
[2017-10-11] MEDS ORDERED: Naloxone HCl 0.4 mg/ml Vial IVP PRN ×2 (09:14)
[2017-10-11] MEDS ORDERED: Eucerin (Mineral Oil/Petrolatum,White) 30 gm Jar TOP PRN (09:14)
[2017-10-11] MEDS ORDERED: Communication Order-Pharmacy FS SCH (09:15)
--- NOTE | 2017-10-11 09:39 | PDOC.LDHP ---
Labor and Delivery H&P Chief complaint: scheduled induction HPI: IOL at 39 weeks for pt preerence, mild PIH, anxiety with labile BP Current gestational age (weeks): 39 Due date: 10/17/17 Dating criteria: first trimester ultrasound Grav: 3 Para: 0 Current complications: gestational hypertension Abnormal US findings: No Current medications: pre-bello vitamins Previous surgical history: other (Tonsillectomy) Allergies/Adverse Reactions: Allergies Allergy/AdvReac Type Severity Reaction Status Date / Time latex Allergy Intermediate Hives Verified 10/11/17 02:20 Penicillins Allergy Intermediate Hives Verified 10/11/17 02:20 - Physical Exam General: NAD, resting, breathing through contractions, other Heart: RRR Lungs: nonlabored breathing Abdomen: NTTP Extremeties: no edema FHT: category 1, variability present [place] contractions every: 2 minutes - Vaginal Exam cm dilated: 2 Effacement: 50% Station: -1 - OB Labs Blood type: A RH: positive Antibody Screen: negative HIV: negative RPR: negative HEPSAg: negative 1 hour GCT: negative GBS: positive Urine drug screen: not done Rubella: immune - Assessment L&D Assessment: elective induction at term - Plan Plan: admit to L&D, cervical ripening, labor augmentation if indicated, GBS antibiotic prophylaxis
[2017-10-11] MEDS ORDERED: Bupivacaine 0.25% HCL 30 ML VIAL ONE (11:11)
[2017-10-11] MEDS ORDERED: Sodium Chloride 0.9% (PF) 10 ML VIAL ONE (11:11)
[2017-10-11] MEDS: CEFAZOLIN 1 GM in Sodium Chloride 0.9% 100 ML IVPB SCH ×2 (11:50→20:22)
--- NOTE | 2017-10-11 15:40 | PDOC.EVN ---
Event Note - Event Note Event Note: Checked on pt in labor. Making good progress. Balloon out at 1pm. SVE at that time /-1. At this time, AROM with clear fluid. SVE /-1. FWB reassuring. CTX q@min. Anticipate . Continue Ancef for GBS.
[2017-10-11] MEDS: fentaNYL Citrate/PF 400 MCG, Bupivacaine 0.5% 20 ML in Sodium Chloride 0.9% 72 ML EPIDURAL SCH ×2 (16:29→22:32)
[2017-10-12] MEDS: Lactated Ringer's 1,000 ML IV SCH ×2 (00:57→07:16)
[2017-10-12] MEDS: Ondansetron HCl/PF 4 MG/2 ML Vial IVP PRN (04:59)
[2017-10-12] MEDS ORDERED: Lanolin Ointment 7 GM TUBE TOP PRN (06:06)
[2017-10-12] MEDS ORDERED: Benzocaine/Menthol 20-0.5% 60 ML CAN TOP PRN (06:06)
[2017-10-12] MEDS ORDERED: Adacel (T-DAP) 0.5 ML VIAL IM ONE (06:06)
[2017-10-12] MEDS ORDERED: NS / Oxytocin 40 units/1000ml 1,000 ML IV SCH (06:06)
[2017-10-12] MEDS ORDERED: Milk Of Magnesia 30 ML UDCUP PO PRN (06:06)
[2017-10-12] MEDS ORDERED: HYDROcodone/Acetaminophen 5/325 mg Tablet PO PRN (06:06)
[2017-10-12] MEDS ORDERED: Bisacodyl 10 MG SUPP PR PRN (06:06)
[2017-10-12] MEDS: Ibuprofen 800 MG TAB PO SCH ×3 (06:35→21:07)
[2017-10-12] MEDS: Misoprostol 100 MCG TAB VAG SCH ×2 (07:15→07:16)
[2017-10-12] MEDS: CEFAZOLIN 1 GM in Sodium Chloride 0.9% 100 ML IVPB SCH (07:16)
[2017-10-12] MEDS: Docusate Calcium (SURFAK) 240 MG CAP PO SCH ×2 (12:26→21:06)
[2017-10-12] MEDS: Ferrous Sulfate 325 MG TAB PO SCH ×2 (12:27→19:10)
[2017-10-13] MEDS: Ibuprofen 800 MG TAB PO SCH ×2 (06:10→14:37)
[2017-10-13 08:50] VITALS: BP 131/79; TEMP 97.7
[2017-10-13] MEDS: Ferrous Sulfate 325 MG TAB PO SCH (09:24)
[2017-10-13] MEDS: Docusate Calcium (SURFAK) 240 MG CAP PO SCH (09:25)
--- NOTE | 2017-10-13 12:06 | PDOC.PP ---
Post Progress Note Post Day #: 1 Subjective: Doing well. well. Wants to go home today. PO intake tolerated: yes Flatus: yes Ambulation: yes Vital Signs (12 hours) Temp Pulse Resp BP Pulse Ox 10/13/17 08:48 97.7 F 63 14 131/79 95 10/13/17 00:10 97.8 F 75 20 Weight Weight 130 lb - Physical Examination General: NAD Cardiovascular: no m/r/g, RRR Respiratory: clear to auscultation bilaterally, non-labored breathing Abdominal: + bowel sounds, lochia, no distention, appropriately TTP Psychiatric: A&Ox3, normal affect Result Diagrams: 10/11/17 02:36 10/11/17 02:36 Additional Labs: Post Labs Blood Type A POSITIVE 10/11/17 02:36 Hep Bs Antigen Non-Reactive S/CO (NonReactive) 10/11/17 02:36 (1) Vaginal delivery Code(s): O80 - ENCOUNTER FOR FULL-TERM UNCOMPLICATED DELIVERY Status: Acute - Assessment/Plan Routine PP care D/C home today F/U in 6 weeks.
== END 2017-10-13 15:30 | disposition home or self-care (01) | DRG 775 ==
LOC: L&D 10-11 01:33 → 3SE 10-12 05:18
PROVIDERS: ADMIT Family Medicine; ATTEND Family Medicine
PROC: 10E0XZZ Delivery of Products of Conception, External Approach (ICD-10-PCS; principal; 2017-10-11)
PROC: 3E033VJ Introduction of Other Hormone into Peripheral Vein, Percutaneous Approach (ICD-10-PCS; 2017-10-11)
PROC: 10907ZC Drainage of Amniotic Fluid, Therapeutic from Products of Conception, Via Natural or Artificial Opening (ICD-10-PCS; 2017-10-11)
PROC: 3E0P7VZ Introduction of Hormone into Female Reproductive, Via Natural or Artificial Opening (ICD-10-PCS; 2017-10-11)
DX: O13.4 Gestational [pregnancy-induced] hypertension without significant proteinuria, complicating childbirth (principal); Z37.0 Single live birth; Z3A.39 39 weeks gestation of pregnancy; Z91.040 Latex allergy status; Z88.0 Allergy status to penicillin; O99.344 Other mental disorders complicating childbirth; F41.9 Anxiety disorder, unspecified; Z79.899 Other long term (current) drug therapy; O99.824 Streptococcus B carrier state complicating childbirth
CPT/HCPCS: 36415; 51702; 80053; 81001; 85027; 86780; 86850; 86900; 86901; 87340; C1726; J0690; J2405; J3010; J3370; J3490; J7050; S0020

== ENCOUNTER 2018-08-02 19:52 | Emergency (ER) | payer OTHER, SELFPAY | END 2018-08-02 20:57 | disposition home or self-care (01) | LOC: ERS 19:52 | DX: S62.306A Unspecified fracture of fifth metacarpal bone, right hand, initial encounter for closed fracture (principal); R20.2 Paresthesia of skin; F41.9 Anxiety disorder, unspecified; F32.9 Major depressive disorder, single episode, unspecified; Z87.891 Personal history of nicotine dependence; Z79.899 Other long term (current) drug therapy; W22.8XXA Striking against or struck by other objects, initial encounter | CPT/HCPCS: 29125 ==

== ENCOUNTER 2019-09-03 07:34 | Outpatient (CLI) | payer OTHER ==
--- NOTE | 2019-09-03 08:42 | CT ---
CT ABDOMEN AND PELVIS WITH ORAL AND IV CONTRAST: HISTORY: A 24-year-old female with abdominal pain. COMPARISON: 07/08/2012. The lung bases are clear. There are a couple of tiny low-density lesions in the liver, too small to characterize. The spleen, pancreas, and adrenal glands are normal. Low-density lesions in the kidne ys, likely cysts, are again seen. No calcified gallstones are noted. No free air, free fluid, or lymphadenopathy is seen in the abdomen or pelvis. The small bowel loops are not abnormally dilated. A normal-appearing appendix is present. Uterus and ovaries are present. Bony structures are unremarkable. The aorta is of normal caliber. IMPRESSION: No evidence of acute process. POS: [facility]
== END 2019-09-03 07:35 | disposition home or self-care (01) ==
LOC: BICCT 07:34
PROVIDERS: ATTEND Internal Medicine Gastroenterology
DX: R10.9 Unspecified abdominal pain (principal)
CPT/HCPCS: 74177

== ENCOUNTER 2022-04-12 15:56 | Emergency (ER) | payer SELFPAY ==
[2022-04-12 16:35] LABS: Bilirubin Negative (Negative); Blood, Urine Negative (Negative); Clarity Clear (Clear); Glucose, Urine (Dipstick) Normal (Negative); Ketone, Urine Negative (Negative); Leukocyte Negative Leu/uL (Negative); Nitrite Negative (Negative); Protein, Urine (Dipstick) Negative (Neg-Trace); Specific Gravity, Urine 1.008 (1.002-1.036); Urobilinogen Normal mg/dL (Less than 2); pH, Urine 7.5 (5.0-9.0)
[2022-04-12 16:37] LABS: Pregnancy Test - Urine (BHCG) Negative (Negative); Pregu Control Background? CLEAR/WHITE (CLR/WHITE); Pregu Control Bar Appear? YES (CONTROL BAR); Specific Gravity 1.008 (1.002-1.036)
[2022-04-12 16:39] LABS: #Eosinphils 0.2 thou/uL (0.0-0.7); #Lymphocytes 2.5 thou/uL (1.20-3.40); #Monocytes 0.3 thou/uL (0.11-0.59); #Neutrophils 2.8 thou/uL (1.40-6.50); %Basophils 0.7 % (0.0-1.0); %Eosinophils 2.6 % (0.0-10.0); %Lymphocytes 43.4 % (21.0-51.0); %Monocytes 5.3 % (0.0-10.0); %Neutrophils 47.9 % (42.0-75.0); Hemoglobin 13.9 g/dL (12.0-16.0); Mean Corpuscular Hemoglobin 29.3 pg (27.0-31.0); Mean Corpuscular Volume 86.3 fl (78.0-98.0); Mean Platelet Volume 6.8 fL (7.4-10.4); Platelet Count 180 10x3/uL (130-400); Red Blood Cell (RBC) Count 4.74 mill/uL (4.20-5.40); White Blood Cell (WBC) Count 5.7 10x3/uL (4.8-10.8)
[2022-04-12 16:42] LABS: Amphetamine Not Detected (NotDetected); Barbiturates Screen Not Detected (NotDetected); Benzodiazepine Screen Not Detected (NotDetected); Cocaine Metabolite Screen Not Detected (NotDetected); Methadone Not Detected (NotDetected); Methamphetamine Not Detected (NotDetected); Opiate Screen Not Detected (NotDetected); Oxycodone Screen Not Detected (NotDetected); Phencyclidine (PCP) Not Detected (NotDetected); THC/Cannabinoid Screen Not Detected (NotDetected); Tricyclic Screen Not Detected (NotDetected)
[2022-04-12 16:57] LABS: ALT (SGPT) 17 U/L (8-55); AST (SGOT) 22 U/L (5-34); Albumin 4.2 g/dL (3.5-5.0); Alkaline Phosphatase 57 U/L (40-110); Anion Gap 11 mmol/L (10-20); BUN (Urea Nitrogen) 16 mg/dL (7.0-18.7); Bilirubin, Total 0.4 mg/dL (0.2-1.2); Calc. Creatinine Clearance 0 mL/min (70-130); Calcium 9.6 mg/dL (7.8-10.44); Carbon Dioxide 22 mmol/L (22-29); Chloride 106 mmol/L (98-107); Estimated GFR 121; Globulin 2.6 g/dL (2.4-3.5); Glucose 93 mg/dL (70-105); Potassium 3.3 mmol/L (3.5-5.1); Protein, Total 6.8 g/dL (6.0-8.3); Sodium 136 mmol/L (136-145)
== END 2022-04-12 17:49 | disposition home or self-care (01) ==
LOC: ERS 15:56
DX: I16.0 Hypertensive urgency (principal); Z87.891 Personal history of nicotine dependence
CPT/HCPCS: 36415; 71045; 80053; 80306; 81003; 81025; 84443; 84484; 85025; 93005